=== PATIENT | female | born 1970 | race Caucasian/White ===

== ENCOUNTER 2018-11-05 09:13 | Emergency (ER) | payer MEDICAID ==
[~2018-11-05] VITALS: Ht 170.2 cm; Wt 81.6 kg
[2018-11-05] MEDS ORDERED: SODIUM CHLORIDE 0.9% 1,000 ML IV ONE ×2 (09:36)
[2018-11-05] MEDS ORDERED: ONDANSETRON HCL 4 MG/2 ML VIAL IV ONE (09:45)
[2018-11-05 09:51] LABS: Basophils # (auto) 0 uL; Basophils % (auto) 0.5 % (0.0-2.0); Eosinophils # (auto) 0.1 uL; Eosinophils % (auto) 0.8 % (0.0-7.0); Hematocrit 44.2 % (36.0-46.0); Hemoglobin 14.5 g/dL (12.2-16.2); Lymphocytes # (auto) 1.4 uL; Lymphocytes % (auto) 16.2 % (10.0-50.0); Mean Corpuscular Hemoglobin 29.4 pg (28.0-32.0); Mean Corpuscular Hgb Conc. 32.7 g/dL (32.0-36.0); Mean Corpuscular Volume 89.6 fL (80.0-100.0); Monocytes # (auto) 0.5 uL; Monocytes % (auto) 5.3 % (0.0-12.0); Neutrophils # (auto) 6.9 uL; Neutrophils % (auto) 77.2 % (37.0-80.0); Nucleated Red Blood Cells % 0.1 %; Platelet Count (auto) 215 10^3/uL (140-450); Red Blood Cells 4.92 10^6/uL (4.0-5.20); Red Cell Distribution Width 18.6 % (11.8-14.3); White Blood Cell 8.9 10^3/uL (4.4-10.8)
[2018-11-05 10:09] LABS: Alanine Aminotransferase 20 U/L (13-56); Albumin 3.9 g/dL (3.4-5.0); Anion Gap 9 (5-15); Aspartate Aminotransferase 12 U/L (15-37); Blood Urea Nitrogen 17 mg/dL (7-18); Calcium 8.6 mg/dL (8.5-10.1); Carbon Dioxide 24 mmol/L (21-32); Chloride 105 mmol/L (98-107); GFR African American 107 mL/min; GFR Non-African American 89 mL/min; Glucose 133 mg/dL (74-106); Sodium 138 mmol/L (136-145)
[2018-11-05 10:14] LABS: Alkaline Phosphatase 53 U/L (45-117); Bilirubin, Total 0.3 mg/dL (0.2-1.0); Total Protein 7.5 g/dL (6.4-8.2)
[2018-11-05 11:30] VITALS: BP 133/77
== END 2018-11-05 13:01 | disposition home or self-care (01) ==
LOC: EDBD 09:13 → ER 09:19
DX: R42 Dizziness and giddiness (principal); Z90.710 Acquired absence of both cervix and uterus; Z98.51 Tubal ligation status; Z86.39 Personal history of other endocrine, nutritional and metabolic disease
CPT/HCPCS: 36415; 70450; 80053; 84484; 85025; 93005; 96361; 96374; 99284; J2405; J7030

== ENCOUNTER 2019-08-02 13:01 | Emergency (ER) | payer MEDICAID ==
[~2019-08-02] VITALS: Ht 170.2 cm; Wt 80.3 kg
[2019-08-02] MEDS ORDERED: IBUPROFEN 800 MG TAB PO ONE (15:15)
[2019-08-02] MEDS ORDERED: cefTRIAXone SOD 1,000 MG VL IM ONE (15:15)
[2019-08-02 15:33] VITALS: BP 135/91
== END 2019-08-02 15:39 | disposition home or self-care (01) ==
LOC: ER 13:01
DX: L03.012 Cellulitis of left finger (principal); F17.210 Nicotine dependence, cigarettes, uncomplicated; Z76.0 Encounter for issue of repeat prescription; Z98.51 Tubal ligation status; Z90.710 Acquired absence of both cervix and uterus
CPT/HCPCS: 73140; 96372; 99283; J0696